=== PATIENT | male | born 1970 | race Caucasian/White ===

== ENCOUNTER 2017-06-28 22:25 | Emergency (ER) | payer OTHER ==
--- NOTE | 2017-06-28 23:47 | CT ---
NONCONTRAST CT OF THE ABDOMEN AND PELVIS: Indication: Left upper quadrant abdominal pain. FINDINGS: There is a 6.4 mm stone at the left UPJ causing mild left hydronephrosis. There are mild vascular calcifications involving the abdominal aorta. Lung bases are clear. Unopacified liver, spleen, pancreas and adrenal glands are unremarkable. There is a normal appearance in the right upper quadrant. No acute osseous abnormality. IMPRESSION: 1. 6.4 mm left UPJ stone causing mild left hydronephrosis. 2. Atherosclerotic disease of the abdominal aorta. POS: FARHAD
== END 2017-06-28 23:50 | disposition home or self-care (01) ==
LOC: ERS 22:25
DX: N13.2 Hydronephrosis with renal and ureteral calculous obstruction (principal); F17.210 Nicotine dependence, cigarettes, uncomplicated
CPT/HCPCS: 74176